=== PATIENT | male | born 1955 | race African-American/Black ===

== ENCOUNTER 2021-08-15 10:27 | Inpatient (IN) | payer MEDICARE, MEDICAID ==
[~2021-08-15] VITALS: Ht 180.3 cm; Wt 122.5 kg
[~2021-08-15 10:27] MED LIST: FURO-151; METF-414; OMEP20TA2; PRED2.5T4
[2021-08-15] MEDS ORDERED: IOHEXOL-350 100 ML BOTTLE ONE (11:15)
[2021-08-15] MEDS ORDERED: DIPHENHYDRAMINE 50MG/ML VIAL IV ONE (11:30)
[2021-08-15] MEDS ORDERED: METOCLOPRAMIDE HCL 10MG/2ML VIAL IV ONE (11:30)
[2021-08-15 12:07] LABS: CHLORIDE 101 mEq/L (98-107)
[2021-08-15 12:10] LABS: ETHANOL BLOOD < 10 mg/dL
[2021-08-15 12:13] LABS: BASOPHILS % 1.1 % (0.0-2.0); EOSINOPHILS % 1.3 % (0.0-5.0); HEMATOCRIT. 33.5 % (42.0-52.0); LYMPHOCYTES % 21.5 % (20.0-50.0); MEAN CORPUSCULAR HEMOGLOBIN 29.1 pg (28.0-32.0); MEAN CORPUSCULAR VOLUME 88.9 fL (80.0-94.0); MEAN PLATELET VOLUME 7.6 fl (7.4-10.4); MONOCYTES % 11.1 % (2.0-8.0); PLATELET 288 x1000/uL (130-400); RED BLOOD CELL COUNT 3.77 mill/uL (4.7-6.1)
[2021-08-15 12:48] LABS: INR 1.2; PROTHROMBIN TIME 12.8 sec (9.6-11.0)
[2021-08-15 15:27] LABS: CLARITY URINE CLEAR (CLEAR); COLOR URINE YELLOW (YELLOW)
[2021-08-15 15:28] LABS: KETONES URINE NEGATIVE (NEGATIVE); NITRITE URINE NEGATIVE (NEGATIVE); OCCULT BLOOD URINE NEGATIVE (NEGATIVE); PROTEIN URINE NEGATIVE (NEGATIVE); UROBILINOGEN URINE 0.2 E.U./dL (0.2-1.0)
[2021-08-15 15:29] LABS: LEUKOCYTE ESTERASE URINE NEGATIVE (NEGATIVE)
[2021-08-15 15:35] LABS: *AMPHETAMINES SCREEN URINE NEGATIVE (NEGATIVE); *BARBITURATES SCREEN URINE NEGATIVE (NEGATIVE); *BENZODIAZEPINES SCREEN URINE NEGATIVE (NEGATIVE)
[2021-08-15 15:36] LABS: *COCAINE SCREEN URINE NEGATIVE (NEGATIVE); CANNABINOID URINE SCREEN NEGATIVE (NEGATIVE); METHADONE URINE SCREEN NEGATIVE (NEGATIVE); OPIATES URINE SCREEN NEGATIVE (NEGATIVE); PHENCYCLIDINE URINE SCREEN NEGATIVE (NEGATIVE)
[2021-08-15] MEDS ORDERED: HYDROCODONE/ACETAMINOPHEN 5/325MG TABLET PO NR (17:15)
[2021-08-15] MEDS: INSULIN LISPRO 100 UNITS/ML SUBCUT SCH (21:00)
[2021-08-15] MEDS ORDERED: DEXTROSE 50% WATER 50ML SYRINGE IV PRN (21:00)
[2021-08-15] MEDS ORDERED: DIPHENHYDRAMINE 50MG/ML VIAL IV PRN (21:00)
[2021-08-15] MEDS ORDERED: GUAIFENESIN 200MG/10ML SUGAR FREE UDC PO PRN (21:00)
[2021-08-15] MEDS ORDERED: CLONIDINE 0.1MG TABLET PO PRN (21:00)
[2021-08-15] MEDS: PANTOPRAZOLE 40MG DR TABLET PO SCH (21:00)
[2021-08-15] MEDS ORDERED: ACETAMINOPHEN 325MG TABLET PO PRN ×2 (21:00)
[2021-08-15] MEDS ORDERED: ONDANSETRON HCL 4MG/2ML INJ IV PRN (21:00)
[2021-08-15] MEDS ORDERED: ZOLPIDEM TARTRATE 5MG TABLET PO PRN (21:00)
[2021-08-15] MEDS: BLOOD SUGAR DIAGNOSTIC STRIP TEST SCH (21:50)
[2021-08-15] MEDS ORDERED: WARFARIN SODIUM 10MG TABLET PO NR (22:00)
[2021-08-15] MEDS: SODIUM CHLORIDE 0.9% INJ 3ML FLUSH IVF SCH (22:02)
[2021-08-15 23:00] VITALS: BP 116/74
[2021-08-16] MEDS: HYDROCODONE/ACETAMINOPHEN 5/325MG TABLET PO PRN ×3 (00:06→21:04)
[2021-08-16 04:00] VITALS: BP 125/65
[2021-08-16 05:41] LABS: INR 1.2; PROTHROMBIN TIME 12.4 sec (9.6-11.0)
[2021-08-16] MEDS: PANTOPRAZOLE 40MG DR TABLET PO SCH (06:07)
[2021-08-16] MEDS: BLOOD SUGAR DIAGNOSTIC STRIP TEST SCH ×4 (06:07→21:03)
[2021-08-16] MEDS: SODIUM CHLORIDE 0.9% INJ 3ML FLUSH IVF SCH ×3 (06:07→21:12)
[2021-08-16] MEDS: INSULIN LISPRO 100 UNITS/ML SUBCUT SCH ×4 (07:50→21:12)
[2021-08-16 08:00] VITALS: BP 121/71
[2021-08-16 12:00] VITALS: BP 104/70
[2021-08-16 16:00] VITALS: BP 144/79
[2021-08-16] MEDS ORDERED: WARFARIN SODIUM 10MG TABLET PO NR (18:00)
[2021-08-16 20:00] VITALS: BP 132/81
[2021-08-16] MEDS: FAMOTIDINE 20MG TABLET PO SCH (21:04)
[2021-08-17] VITALS: BP 122/69
[2021-08-17 04:00] VITALS: BP 134/72
[2021-08-17] MEDS: SODIUM CHLORIDE 0.9% INJ 3ML FLUSH IVF SCH ×3 (06:27→21:51)
[2021-08-17] MEDS: BLOOD SUGAR DIAGNOSTIC STRIP TEST SCH ×4 (06:27→21:50)
[2021-08-17] MEDS: INSULIN LISPRO 100 UNITS/ML SUBCUT SCH ×4 (07:38→21:52)
[2021-08-17 08:10] VITALS: BP 128/75
[2021-08-17] MEDS: HYDROCODONE/ACETAMINOPHEN 5/325MG TABLET PO PRN (09:03)
[2021-08-17 10:30] LABS: INR 1.2; PROTHROMBIN TIME 12.9 sec (9.6-11.0)
[2021-08-17 12:15] VITALS: BP 129/82
[2021-08-17 16:14] VITALS: BP 135/83
[2021-08-17] MEDS ORDERED: WARFARIN SODIUM 7.5MG TABLET PO SCH (18:00)
[2021-08-17 20:00] VITALS: BP 119/78
[2021-08-17] MEDS: CARVEDILOL 3.125 MG TABLET PO SCH (21:51)
[2021-08-17] MEDS: FAMOTIDINE 20MG TABLET PO SCH (21:51)
[2021-08-18] VITALS (7 sets, daily range): BP systolic 110–137; BP diastolic 68–92
[2021-08-18] MEDS: SODIUM CHLORIDE 0.9% INJ 3ML FLUSH IVF SCH ×3 (06:00→22:03)
[2021-08-18] MEDS: BLOOD SUGAR DIAGNOSTIC STRIP TEST SCH ×4 (06:27→21:00)
[2021-08-18] MEDS: INSULIN LISPRO 100 UNITS/ML SUBCUT SCH ×4 (07:50→22:05)
[2021-08-18] MEDS: CARVEDILOL 3.125 MG TABLET PO SCH ×2 (08:59→22:03)
[2021-08-18] MEDS: LOSARTAN POTASSIUM 25 MG TABLET PO SCH (09:00)
[2021-08-18] MEDS: POTASSIUM CHLORIDE 10MEQ TABLET SR PO SCH (09:00)
[2021-08-18] MEDS: FUROSEMIDE 40MG TABLET PO SCH (09:00)
[2021-08-18] MEDS: HYDROCODONE/ACETAMINOPHEN 5/325MG TABLET PO PRN ×2 (09:06→13:13)
[2021-08-18 11:08] LABS: INR 1.4; PROTHROMBIN TIME 14.3 sec (9.6-11.0)
[2021-08-18] MEDS: WARFARIN SODIUM 5MG TABLET PO SCH ×2 (18:00→18:18)
[2021-08-18] MEDS ORDERED: WARFARIN SODIUM 7.5MG TABLET PO SCH ×2 (18:00→20:00)
[2021-08-18] MEDS ORDERED: WARFARIN SODIUM 5MG TABLET PO SCH (20:00)
[2021-08-18] MEDS: FAMOTIDINE 20MG TABLET PO SCH (22:03)
[2021-08-19 00:26] VITALS: BP 129/54
[2021-08-19 04:13] VITALS: BP 121/79
[2021-08-19] MEDS: SODIUM CHLORIDE 0.9% INJ 3ML FLUSH IVF SCH ×3 (06:17→21:29)
[2021-08-19] MEDS: INSULIN LISPRO 100 UNITS/ML SUBCUT SCH ×4 (07:47→21:28)
[2021-08-19] MEDS: BLOOD SUGAR DIAGNOSTIC STRIP TEST SCH ×4 (07:49→21:28)
[2021-08-19 08:00] VITALS: BP 108/67
[2021-08-19] MEDS: POTASSIUM CHLORIDE 10MEQ TABLET SR PO SCH (08:44)
[2021-08-19] MEDS: FUROSEMIDE 40MG TABLET PO SCH (08:44)
[2021-08-19 08:46] LABS: INR 1.4; PROTHROMBIN TIME 15.1 sec (9.6-11.0)
[2021-08-19] MEDS: LOSARTAN POTASSIUM 25 MG TABLET PO SCH (08:47)
[2021-08-19] MEDS: CARVEDILOL 3.125 MG TABLET PO SCH ×2 (08:48→21:27)
[2021-08-19] MEDS: HYDROCODONE/ACETAMINOPHEN 5/325MG TABLET PO PRN ×2 (08:53→18:34)
[2021-08-19 12:00] VITALS: BP 106/71
[2021-08-19 16:00] VITALS: BP 119/76
[2021-08-19] MEDS ORDERED: WARFARIN SODIUM 7.5MG TABLET PO SCH (18:00)
[2021-08-19] MEDS ORDERED: WARFARIN SODIUM 5MG TABLET PO SCH (18:00)
[2021-08-19] MEDS ORDERED: WARFARIN SODIUM 2.5MG TABLET PO SCH (19:30)
[2021-08-19 20:08] VITALS: BP 140/75
[2021-08-19] MEDS: FAMOTIDINE 20MG TABLET PO SCH (21:27)
[2021-08-20 00:27] VITALS: BP 119/75
[2021-08-20 04:35] VITALS: BP 122/86
[2021-08-20] MEDS: HYDROCODONE/ACETAMINOPHEN 5/325MG TABLET PO PRN (04:45)
[2021-08-20] MEDS: SODIUM CHLORIDE 0.9% INJ 3ML FLUSH IVF SCH ×3 (06:21→22:23)
[2021-08-20] MEDS: BLOOD SUGAR DIAGNOSTIC STRIP TEST SCH ×4 (07:20→21:00)
[2021-08-20] MEDS: INSULIN LISPRO 100 UNITS/ML SUBCUT SCH ×4 (07:50→22:23)
[2021-08-20 07:57] LABS: INR 1.6; PROTHROMBIN TIME 16.7 sec (9.6-11.0)
[2021-08-20 08:00] VITALS: BP 118/73
[2021-08-20] MEDS: CARVEDILOL 3.125 MG TABLET PO SCH ×2 (09:52→22:22)
[2021-08-20] MEDS: LOSARTAN POTASSIUM 25 MG TABLET PO SCH (09:52)
[2021-08-20] MEDS: FUROSEMIDE 40MG TABLET PO SCH (09:52)
[2021-08-20] MEDS: POTASSIUM CHLORIDE 10MEQ TABLET SR PO SCH (09:52)
[2021-08-20] MEDS ORDERED: NALOXONE HCL 0.4MG/ML VIAL IV PRN (13:00)
[2021-08-20 16:00] VITALS: BP 110/69
[2021-08-20] MEDS ORDERED: WARFARIN SODIUM 10MG TABLET PO SCH (18:00)
[2021-08-20] MEDS ORDERED: WARFARIN SODIUM 4MG TABLET PO SCH (18:00)
[2021-08-20 20:00] VITALS: BP 112/73
[2021-08-20] MEDS: FAMOTIDINE 20MG TABLET PO SCH (22:22)
[2021-08-21 00:09] VITALS: BP 110/75
[2021-08-21 04:20] VITALS: BP 118/79
[2021-08-21] MEDS: SODIUM CHLORIDE 0.9% INJ 3ML FLUSH IVF SCH ×2 (06:24→13:06)
[2021-08-21 06:55] LABS: INR 1.8; PROTHROMBIN TIME 18.7 sec (9.6-11.0)
[2021-08-21] MEDS: BLOOD SUGAR DIAGNOSTIC STRIP TEST SCH ×2 (06:56→13:06)
[2021-08-21] MEDS: INSULIN LISPRO 100 UNITS/ML SUBCUT SCH ×2 (07:50→13:02)
[2021-08-21 08:00] VITALS: BP 126/81
[2021-08-21] MEDS: FUROSEMIDE 40MG TABLET PO SCH (10:06)
[2021-08-21] MEDS: CARVEDILOL 3.125 MG TABLET PO SCH (10:06)
[2021-08-21] MEDS: POTASSIUM CHLORIDE 10MEQ TABLET SR PO SCH (10:06)
[2021-08-21] MEDS: LOSARTAN POTASSIUM 25 MG TABLET PO SCH (10:11)
[2021-08-21 12:27] VITALS: BP 113/83
[2021-08-21 13:42] VITALS: BP 126/81
[2021-08-21] MEDS ORDERED: WARFARIN SODIUM 3MG TABLET PO SCH (18:00)
[2021-08-21] MEDS ORDERED: WARFARIN SODIUM 10MG TABLET PO SCH (18:00)
== END 2021-08-21 15:14 | disposition home or self-care (01) | DRG 45 ==
LOC: ER 11:40 → 6WST 13:08 → EDBEDREQ 13:14 → EDBEDREQTM 13:14 → EDBEDREQSVC 13:14 → ENRESERV 21:17
PROVIDERS: ADMIT Internal Medicine; ATTEND Internal Medicine
PROC: 4A10X4Z Monitoring of Central Nervous Electrical Activity, External Approach (ICD-10-PCS; principal; 2021-08-17)
DX: I63.9 Cerebral infarction, unspecified (principal); I11.0 Hypertensive heart disease with heart failure; I50.22 Chronic systolic (congestive) heart failure; G81.91 Hemiplegia, unspecified affecting right dominant side; I69.351 Hemiplegia and hemiparesis following cerebral infarction affecting right dominant side; Z79.01 Long term (current) use of anticoagulants; E11.9 Type 2 diabetes mellitus without complications; E66.01 Morbid (severe) obesity due to excess calories; M50.321 Other cervical disc degeneration at C4-C5 level; M47.812 Spondylosis without myelopathy or radiculopathy, cervical region; Z20.822 Contact with and (suspected) exposure to COVID-19; M25.78 Osteophyte, vertebrae; M48.02 Spinal stenosis, cervical region; Z79.84 Long term (current) use of oral hypoglycemic drugs; Z79.899 Other long term (current) drug therapy; Z87.74 Personal history of (corrected) congenital malformations of heart and circulatory system; Z68.37 Body mass index [BMI] 37.0-37.9, adult
CPT/HCPCS: 36415; 70496; 70498; 70551; 71045; 80053; 80061; 80305; 80320; 81003; 82962; 83036; 84484; 85025; 87426; 93005; 93306; 95816; 97161; 97166; 97530; 97535; 99291; J1200; J1815; J2765; Q9967; G0480

== ENCOUNTER 2021-09-29 19:06 | Emergency (ER) | payer MEDICARE, MEDICAID ==
[~2021-09-29] VITALS: Ht 180.3 cm; Wt 132.0 kg
[2021-09-29 19:10] VITALS: BP 124/83
[2021-09-29] MEDS ORDERED: PROCHLORPERAZINE 10MG/2ML VIAL IV ONE (21:00)
[2021-09-29] MEDS ORDERED: DIPHENHYDRAMINE 50MG/ML VIAL IV ONE (21:00)
[2021-09-29 21:16] LABS: EOSINOPHILS % 1.8 % (0.0-5.0); HEMATOCRIT. 35.3 % (42.0-52.0); HEMOGLOBIN. 11.7 g/dL (14.0-18.0); LYMPHOCYTES % 28.1 % (20.0-50.0); MEAN CORPUSCULAR HEMOGLOBIN 29.2 pg (28.0-32.0); MEAN CORPUSCULAR VOLUME 88.2 fL (80.0-94.0); MEAN PLATELET VOLUME 7.8 fl (7.4-10.4); MONOCYTES % 12.2 % (2.0-8.0); NEUTROPHILS % 56.9 % (40.0-76.0); PLATELET 238 x1000/uL (130-400); RED CELL DISTRIBUTION WIDTH 14.9 % (11.6-14.6)
[2021-09-29 21:20] LABS: CHLORIDE 104 mEq/L (98-107)
== END 2021-09-30 08:58 | disposition home or self-care (01) ==
LOC: ER 19:06
DX: R51.9 Headache, unspecified (principal); I12.9 Hypertensive chronic kidney disease with stage 1 through stage 4 chronic kidney disease, or unspecified chronic kidney disease; E11.22 Type 2 diabetes mellitus with diabetic chronic kidney disease; N18.9 Chronic kidney disease, unspecified; I69.351 Hemiplegia and hemiparesis following cerebral infarction affecting right dominant side; Z79.84 Long term (current) use of oral hypoglycemic drugs
CPT/HCPCS: 36415; 70450; 71045; 80053; 84484; 85025; 93005; 96374; 96375; 99285; J0780; J1200

== ENCOUNTER 2021-10-27 10:18 | Inpatient (IN) | payer MEDICARE, MEDICAID ==
[~2021-10-27] VITALS: Ht 180.3 cm; Wt 119.3 kg
[~2021-10-27 10:18] MED LIST changes: -METF-414; +METF-414 PO; -OMEP20TA2; +OMEP20TA2 PO; -PRED2.5T4; +PRED2.5T4 PO
[2021-10-27] MEDS ORDERED: IOHEXOL-350 100 ML BOTTLE ONE (11:34)
[2021-10-27 12:07] LABS: BASOPHILS % 1.3 % (0.0-2.0); EOSINOPHILS % 2.2 % (0.0-5.0); HEMATOCRIT. 33.5 % (42.0-52.0); HEMOGLOBIN. 11.3 g/dL (14.0-18.0); LYMPHOCYTES % 25.5 % (20.0-50.0); MEAN CORPUSCULAR HEMOGLOBIN 29.3 pg (28.0-32.0); MEAN CORPUSCULAR VOLUME 86.9 fL (80.0-94.0); MEAN PLATELET VOLUME 7.6 fl (7.4-10.4); MONOCYTES % 10.9 % (2.0-8.0); NEUTROPHILS % 60.1 % (40.0-76.0); PLATELET 267 x1000/uL (130-400); RED BLOOD CELL COUNT 3.86 mill/uL (4.7-6.1); RED CELL DISTRIBUTION WIDTH 14.7 % (11.6-14.6)
[2021-10-27 12:12] LABS: CHLORIDE 103 mEq/L (98-107)
[2021-10-27 12:13] LABS: CLARITY URINE CLEAR (CLEAR); COLOR URINE YELLOW (YELLOW); KETONES URINE NEGATIVE (NEGATIVE); LEUKOCYTE ESTERASE URINE NEGATIVE (NEGATIVE); NITRITE URINE NEGATIVE (NEGATIVE); OCCULT BLOOD URINE NEGATIVE (NEGATIVE); PH URINE 5.5 (4.5-8.0); PROTEIN URINE NEGATIVE (NEGATIVE); SPECIFIC GRAVITY URINE 1.024 (1.005-1.030); UROBILINOGEN URINE 0.2 E.U./dL (0.2-1.0)
[2021-10-27 12:16] LABS: ETHANOL BLOOD < 10 mg/dL
[2021-10-27 12:20] LABS: INR 2.6; PROTHROMBIN TIME 26.3 sec (9.6-11.0)
[2021-10-27 12:29] LABS: *AMPHETAMINES SCREEN URINE NEGATIVE (NEGATIVE); *BARBITURATES SCREEN URINE NEGATIVE (NEGATIVE); *BENZODIAZEPINES SCREEN URINE NEGATIVE (NEGATIVE); *COCAINE SCREEN URINE NEGATIVE (NEGATIVE); METHADONE URINE SCREEN NEGATIVE (NEGATIVE); OPIATES URINE SCREEN PRESUMTIVE POSITIVE (NEGATIVE)
[2021-10-27 12:30] LABS: CANNABINOID URINE SCREEN NEGATIVE (NEGATIVE)
[2021-10-27 12:40] LABS: PHENCYCLIDINE URINE SCREEN NEGATIVE (NEGATIVE)
[2021-10-27] MEDS ORDERED: HYDROCODONE/ACETAMINOPHEN 5/325MG TABLET PO ONE (13:00)
[2021-10-27] MEDS ORDERED: GUAIFENESIN 200MG/10ML SUGAR FREE UDC PO PRN (13:15)
[2021-10-27] MEDS ORDERED: ACETAMINOPHEN 325MG TABLET PO PRN (13:15)
[2021-10-27] MEDS ORDERED: IPRATROPIUM/ALBUTEROL 0.5-3(2.5)MG/3ML NEB HHN PRN (13:15)
[2021-10-27] MEDS ORDERED: CLONIDINE 0.1MG TABLET PO PRN (13:15)
[2021-10-27] MEDS ORDERED: ONDANSETRON HCL 4MG/2ML INJ IV PRN (13:15)
[2021-10-27] MEDS ORDERED: DEXTROSE 50% WATER 50ML SYRINGE IV PRN (14:00)
[2021-10-27 14:30] VITALS: BP_SYST 119; BP_SYST 156; BP_DIAS 75; BP_DIAS 80
[2021-10-27 16:00] VITALS: BP 128/68
[2021-10-27] MEDS ORDERED: TRAZODONE HCL 50MG TABLET PO PRN (16:15)
[2021-10-27] MEDS ORDERED: TRAMADOL 50MG TABLET PO PRN (16:15)
[2021-10-27] MEDS ORDERED: WARF6TAB48 PO (16:16)
[2021-10-27] MEDS: INSULIN LISPRO 100 UNITS/ML SUBCUT SCH ×2 (17:09→21:00)
[2021-10-27] MEDS: BLOOD SUGAR DIAGNOSTIC STRIP TEST SCH ×2 (17:09→21:33)
[2021-10-27] MEDS: CARVEDILOL 3.125 MG TABLET PO SCH ×2 (17:10→23:00)
[2021-10-27] MEDS ORDERED: WARFARIN SODIUM 10MG TABLET PO SCH (18:00)
[2021-10-27] MEDS ORDERED: WARF10TA44 PO (18:53)
[2021-10-27 20:00] VITALS: BP 124/81
[2021-10-27] MEDS: HYDROCODONE/ACETAMINOPHEN 5/325MG TABLET PO PRN (21:56)
[2021-10-28] VITALS: BP 118/60
[2021-10-28 04:00] VITALS: BP 137/73
[2021-10-28] MEDS: BLOOD SUGAR DIAGNOSTIC STRIP TEST SCH ×4 (05:51→20:45)
[2021-10-28] MEDS: INSULIN LISPRO 100 UNITS/ML SUBCUT SCH ×4 (05:52→20:45)
[2021-10-28 08:00] VITALS: BP 120/73
[2021-10-28 08:04] LABS: INR 2.4; PROTHROMBIN TIME 23.9 sec (9.6-11.0)
[2021-10-28 08:16] LABS: BASOPHILS % 1.1 % (0.0-2.0); EOSINOPHILS % 3.7 % (0.0-5.0); HEMATOCRIT. 32.4 % (42.0-52.0); HEMOGLOBIN. 10.8 g/dL (14.0-18.0); LYMPHOCYTES % 31.8 % (20.0-50.0); MEAN CORPUSCULAR HEMOGLOBIN 29.1 pg (28.0-32.0); MEAN CORPUSCULAR VOLUME 87.4 fL (80.0-94.0); MONOCYTES % 12.5 % (2.0-8.0); NEUTROPHILS % 50.9 % (40.0-76.0); PLATELET 259 x1000/uL (130-400); RED BLOOD CELL COUNT 3.71 mill/uL (4.7-6.1); RED CELL DISTRIBUTION WIDTH 14.7 % (11.6-14.6)
[2021-10-28] MEDS: AMLODIPINE 5MG TABLET PO SCH (08:39)
[2021-10-28] MEDS: CARVEDILOL 3.125 MG TABLET PO SCH ×2 (08:39→20:46)
[2021-10-28] MEDS: HYDROCODONE/ACETAMINOPHEN 5/325MG TABLET PO PRN ×2 (08:42→17:16)
[2021-10-28 12:00] VITALS: BP 118/77
[2021-10-28 16:02] VITALS: BP 122/66
[2021-10-28] MEDS ORDERED: WARFARIN SODIUM 10MG TABLET PO NR (18:00)
[2021-10-28 20:00] VITALS: BP 118/68
[2021-10-29] VITALS: BP 113/72
[2021-10-29] MEDS: HYDROCODONE/ACETAMINOPHEN 5/325MG TABLET PO PRN ×4 (00:35→22:32)
[2021-10-29 04:00] VITALS: BP 130/82
[2021-10-29] MEDS: BLOOD SUGAR DIAGNOSTIC STRIP TEST SCH ×4 (07:09→20:12)
[2021-10-29] MEDS: INSULIN LISPRO 100 UNITS/ML SUBCUT SCH ×4 (07:10→22:26)
[2021-10-29 08:00] VITALS: BP 119/73
[2021-10-29] MEDS: AMLODIPINE 5MG TABLET PO SCH (08:04)
[2021-10-29] MEDS: CARVEDILOL 3.125 MG TABLET PO SCH ×2 (08:04→22:23)
[2021-10-29 08:30] LABS: PROTHROMBIN TIME 20.2 sec (9.6-11.0)
[2021-10-29 08:31] LABS: BASOPHILS % 1.1 % (0.0-2.0); HEMATOCRIT. 32.9 % (42.0-52.0); HEMOGLOBIN. 11.1 g/dL (14.0-18.0); LYMPHOCYTES % 33.4 % (20.0-50.0); MEAN CORPUSCULAR HEMOGLOBIN 29.2 pg (28.0-32.0); MEAN CORPUSCULAR VOLUME 86.6 fL (80.0-94.0); MEAN PLATELET VOLUME 8.4 fl (7.4-10.4); MONOCYTES % 11.9 % (2.0-8.0); NEUTROPHILS % 49.6 % (40.0-76.0); PLATELET 267 x1000/uL (130-400); RED CELL DISTRIBUTION WIDTH 14.8 % (11.6-14.6)
[2021-10-29 10:32] LABS: CREATINE KINASE 84 IU/L (39-308)
[2021-10-29 12:00] VITALS: BP 113/84
[2021-10-29 13:09] LABS: INR 1.9; PROTHROMBIN TIME 19.7 sec (9.6-11.0)
[2021-10-29] MEDS: FUROSEMIDE 40MG TABLET PO SCH (15:15)
[2021-10-29 16:00] VITALS: BP 123/75
[2021-10-29] MEDS ORDERED: NALOXONE HCL 0.4MG/ML VIAL IV PRN (19:00)
[2021-10-29 20:00] VITALS: BP 129/76
[2021-10-30] VITALS (7 sets, daily range): BP systolic 95–132; BP diastolic 15–78
[2021-10-30] MEDS: INSULIN LISPRO 100 UNITS/ML SUBCUT SCH ×4 (05:54→21:18)
[2021-10-30] MEDS: BLOOD SUGAR DIAGNOSTIC STRIP TEST SCH ×4 (05:54→21:19)
[2021-10-30 06:03] LABS: BASOPHILS % 1.3 % (0.0-2.0); EOSINOPHILS % 3.3 % (0.0-5.0); HEMATOCRIT. 33.5 % (42.0-52.0); HEMOGLOBIN. 11.3 g/dL (14.0-18.0); INR 1.7; LYMPHOCYTES % 31.4 % (20.0-50.0); MEAN CORPUSCULAR HEMOGLOBIN 29.2 pg (28.0-32.0); MEAN CORPUSCULAR VOLUME 86.5 fL (80.0-94.0); MONOCYTES % 14.7 % (2.0-8.0); NEUTROPHILS % 49.3 % (40.0-76.0); PLATELET 299 x1000/uL (130-400); PROTHROMBIN TIME 17.5 sec (9.6-11.0); RED BLOOD CELL COUNT 3.87 mill/uL (4.7-6.1); RED CELL DISTRIBUTION WIDTH 14.8 % (11.6-14.6)
[2021-10-30] MEDS: CARVEDILOL 3.125 MG TABLET PO SCH ×2 (08:55→21:19)
[2021-10-30] MEDS: DOCUSATE SODIUM 100MG CAPSULE PO PRN (08:55)
[2021-10-30] MEDS: HYDROCODONE/ACETAMINOPHEN 5/325MG TABLET PO PRN ×3 (08:55→21:20)
[2021-10-30] MEDS: AMLODIPINE 5MG TABLET PO SCH (08:55)
[2021-10-30] MEDS: FUROSEMIDE 40MG TABLET PO SCH (08:57)
[2021-10-30] MEDS ORDERED: LIDOCAINE HCL 1% 10 MG/ML 10ML VIAL ONE (10:07)
[2021-10-30] MEDS ORDERED: SODIUM BICARBONATE 4% (2.4MEQ) 5ML VIAL IV ONE (10:07)
[2021-10-30 12:04] LABS: INR 1.6; PROTHROMBIN TIME 16.9 sec (9.6-11.0)
[2021-10-30] MEDS ORDERED: TOPUD PO (12:22)
[2021-10-30] MEDS ORDERED: COR3 PO (12:22)
[2021-10-30] MEDS ORDERED: FURO40TA5 PO (12:22)
[2021-10-30] MEDS ORDERED: WARFARIN SODIUM 10MG TABLET PO NR (22:30)
[2021-10-31] VITALS: BP 118/71
[2021-10-31] MEDS: HYDROCODONE/ACETAMINOPHEN 5/325MG TABLET PO PRN ×4 (03:11→22:49)
[2021-10-31 04:00] VITALS: BP 104/68
[2021-10-31 06:27] LABS: INR 1.4
[2021-10-31] MEDS: BLOOD SUGAR DIAGNOSTIC STRIP TEST SCH ×5 (06:35→21:08)
[2021-10-31] MEDS: INSULIN LISPRO 100 UNITS/ML SUBCUT SCH ×5 (06:35→21:08)
[2021-10-31 08:00] VITALS: BP 124/73
[2021-10-31] MEDS: DOCUSATE SODIUM 100MG CAPSULE PO PRN (09:28)
[2021-10-31] MEDS: CARVEDILOL 3.125 MG TABLET PO SCH ×2 (09:28→21:08)
[2021-10-31] MEDS: FUROSEMIDE 40MG TABLET PO SCH (09:28)
[2021-10-31] MEDS: AMLODIPINE 5MG TABLET PO SCH (09:28)
[2021-10-31 16:00] VITALS: BP 106/75
[2021-10-31] MEDS ORDERED: WARFARIN SODIUM 2MG TABLET PO SCH (18:00)
[2021-10-31] MEDS ORDERED: WARFARIN SODIUM 10MG TABLET PO SCH (18:00)
[2021-10-31 20:00] VITALS: BP 107/81
[2021-11-01] VITALS: BP 110/79
[2021-11-01 04:00] VITALS: BP 117/77
[2021-11-01] MEDS: BLOOD SUGAR DIAGNOSTIC STRIP TEST SCH ×4 (05:54→21:54)
[2021-11-01] MEDS: INSULIN LISPRO 100 UNITS/ML SUBCUT SCH ×4 (05:54→23:00)
[2021-11-01] MEDS: HYDROCODONE/ACETAMINOPHEN 5/325MG TABLET PO PRN ×3 (05:54→21:37)
[2021-11-01 06:26] LABS: BASOPHILS % 0.8 % (0.0-2.0); EOSINOPHILS % 2.6 % (0.0-5.0); HEMATOCRIT. 34.2 % (42.0-52.0); HEMOGLOBIN. 11.5 g/dL (14.0-18.0); LYMPHOCYTES % 31.6 % (20.0-50.0); MEAN PLATELET VOLUME 8.1 fl (7.4-10.4); MONOCYTES % 13.8 % (2.0-8.0); NEUTROPHILS % 51.2 % (40.0-76.0); PLATELET 291 x1000/uL (130-400); RED BLOOD CELL COUNT 3.98 mill/uL (4.7-6.1); RED CELL DISTRIBUTION WIDTH 14.8 % (11.6-14.6)
[2021-11-01 06:35] LABS: INR 1.4; PROTHROMBIN TIME 14.6 sec (9.6-11.0)
[2021-11-01 08:00] VITALS: BP 114/64
[2021-11-01] MEDS: CARVEDILOL 3.125 MG TABLET PO SCH ×2 (09:20→21:35)
[2021-11-01] MEDS: AMLODIPINE 5MG TABLET PO SCH (09:20)
[2021-11-01] MEDS: FUROSEMIDE 40MG TABLET PO SCH (09:21)
[2021-11-01 12:00] VITALS: BP 102/60
[2021-11-01 16:00] VITALS: BP 106/65
[2021-11-01] MEDS ORDERED: WARFARIN SODIUM 10MG TABLET PO NR (18:00)
[2021-11-01] MEDS ORDERED: WARFARIN SODIUM 2MG TABLET PO NR (18:00)
[2021-11-01 20:00] VITALS: BP 101/69
[2021-11-02] VITALS (7 sets, daily range): BP systolic 97–130; BP diastolic 58–71
[2021-11-02] MEDS: HYDROCODONE/ACETAMINOPHEN 5/325MG TABLET PO PRN ×4 (05:30→23:53)
[2021-11-02] MEDS: BLOOD SUGAR DIAGNOSTIC STRIP TEST SCH ×4 (06:21→20:35)
[2021-11-02] MEDS: INSULIN LISPRO 100 UNITS/ML SUBCUT SCH ×4 (06:21→21:57)
[2021-11-02 06:56] LABS: INR 1.5; PROTHROMBIN TIME 15.9 sec (9.6-11.0)
[2021-11-02 07:27] LABS: BASOPHILS % 0.6 % (0.0-2.0); HEMATOCRIT. 34.3 % (42.0-52.0); HEMOGLOBIN. 11.6 g/dL (14.0-18.0); LYMPHOCYTES % 32.4 % (20.0-50.0); MEAN CORPUSCULAR VOLUME 85.8 fL (80.0-94.0); MEAN PLATELET VOLUME 8.3 fl (7.4-10.4); MONOCYTES % 13.5 % (2.0-8.0); NEUTROPHILS % 50.5 % (40.0-76.0); PLATELET 289 x1000/uL (130-400); RED CELL DISTRIBUTION WIDTH 14.5 % (11.6-14.6)
[2021-11-02] MEDS: CARVEDILOL 3.125 MG TABLET PO SCH ×2 (09:00→21:54)
[2021-11-02] MEDS: AMLODIPINE 5MG TABLET PO SCH (09:00)
[2021-11-02] MEDS: FUROSEMIDE 40MG TABLET PO SCH (10:42)
[2021-11-02] MEDS ORDERED: WARFARIN SODIUM 10MG TABLET PO NR (18:00)
[2021-11-02] MEDS: DOCUSATE SODIUM 100MG CAPSULE PO PRN (23:53)
[2021-11-03 04:00] VITALS: BP 116/65
[2021-11-03] MEDS: BLOOD SUGAR DIAGNOSTIC STRIP TEST SCH ×3 (05:28→17:41)
[2021-11-03] MEDS: INSULIN LISPRO 100 UNITS/ML SUBCUT SCH ×3 (05:57→17:40)
[2021-11-03 08:00] VITALS: BP 112/73
[2021-11-03 08:20] LABS: INR 1.7; PROTHROMBIN TIME 17.9 sec (9.6-11.0)
[2021-11-03] MEDS: CARVEDILOL 3.125 MG TABLET PO SCH (09:29)
[2021-11-03] MEDS: HYDROCODONE/ACETAMINOPHEN 5/325MG TABLET PO PRN (11:58)
[2021-11-03 12:00] VITALS: BP 120/71
[2021-11-03 16:00] VITALS: BP 118/66
[2021-11-03 16:06] VITALS: BP 118/66
[2021-11-03] MEDS ORDERED: HYDR-4001 MT (16:51)
[2021-11-03] MEDS ORDERED: WARFARIN SODIUM 2MG TABLET PO NR (18:00)
[2021-11-03] MEDS ORDERED: WARFARIN SODIUM 10MG TABLET PO NR (18:00)
== END 2021-11-03 17:40 | DRG 351 ==
LOC: ER 10:29 → 8WST 12:42 → EDBEDREQ 12:45 → EDBEDREQTM 12:45 → ENRESERV 13:51
PROVIDERS: ADMIT Internal Medicine; ATTEND Internal Medicine
PROC: 0S9C3ZZ Drainage of Right Knee Joint, Percutaneous Approach (ICD-10-PCS; principal; 2021-10-30)
DX: M17.11 Unilateral primary osteoarthritis, right knee (principal); N17.9 Acute kidney failure, unspecified; E11.22 Type 2 diabetes mellitus with diabetic chronic kidney disease; I13.0 Hypertensive heart and chronic kidney disease with heart failure and stage 1 through stage 4 chronic kidney disease, or unspecified chronic kidney disease; I50.22 Chronic systolic (congestive) heart failure; I69.351 Hemiplegia and hemiparesis following cerebral infarction affecting right dominant side; D64.9 Anemia, unspecified; I48.0 Paroxysmal atrial fibrillation; M06.4 Inflammatory polyarthropathy; N18.9 Chronic kidney disease, unspecified; M11.20 Other chondrocalcinosis, unspecified site; Z79.01 Long term (current) use of anticoagulants; Z82.49 Family history of ischemic heart disease and other diseases of the circulatory system; Z86.711 Personal history of pulmonary embolism; Z86.718 Personal history of other venous thrombosis and embolism; Z79.84 Long term (current) use of oral hypoglycemic drugs; Z79.899 Other long term (current) drug therapy; Z79.1 Long term (current) use of non-steroidal anti-inflammatories (NSAID); W18.30XA Fall on same level, unspecified, initial encounter
CPT/HCPCS: 36415; 70496; 70498; 71045; 73562; 73721; 76770; 76942; 80048; 80053; 80061; 80305; 80320; 81003; 82550; 82962; 83036; 84443; 84484; 85025; 93005; 97116; 97162; 97166; 97530; 97535; 99291; J1815; J2405; J3490; L1830; Q9967; G0480